=== PATIENT | female | born 1945 | race Caucasian/White ===

== ENCOUNTER 2017-06-08 11:56 | Inpatient (IN) | payer OTHER, MEDICARE ==
[~2017-06-08] VITALS: Ht 160 cm; Wt 77.1 kg
[~2017-06-08 11:56] MED LIST: ALBUTEROL0.09 MG/A1 INH; ALENDRONATE SOD70 M1 PO; ANTIVERT 25MG #1 PAC PO; AUGMENTIN 875875 MG PO; AZITHROMYCIN250 M1 PO; CODEINE SULFATE30 MG PO; COUMADIN 5 MG TA5 MG PO; CUTIVATE 60 ML60 ML TOP; DOCUSATE SODIU100 MG PO; ESCITALOPRAM20 MG PO; FISH OIL CONC1000 MG PO; GALZIN50 MG PO; GARLIC OIL NATUR1 MG PO; HEPARIN 2525000 UNI1 IV; LASIX20 M1 PO; LASIX40 MG PO; LISINOPRIL5 M1 PO; LOPRESSOR 6.26.25 MG PO; LUNESTA2 MG PO; MAG-OX 400400 MG PO; MILK THISTLE1 CAP PO; NYSTATIN100000 U/G TOP; OS-CAL 500 + D1 TAB PO; PRAVASTATIN SOD40 MG PO; PREDNISONE10 M2 PO; PREDNISONE10 MG PO; PROBIOTIC FORMU1 CAP PO; ROBITUSSIN W/CO10 ML PO; ROXICODONE5 MG PO; SENOKOT8.6 MG PO; SINGULAIR10 MG PO; SINGULAIR4 MG; SPIRIVA 18 MCG18 MCG INH; SPRYCEL PO; SYMBICORT 160/41 PUF INH; VALERIAN ROOT100 MG; VITAMIN B COMPL1 CAP PO; VITAMIN C1000 M1 PO; VITAMIN D32000 I1 PO; XANAX 0.5MG TA0.5 MG PO; ZITHROMAX Z-PA250 M1 PO; ZITHROMAX500 MG PO; [UNRECOGNIZED DRUG - OTHER] PO
[2017-06-08 14:26] LABS: ABSOLUTE BASOPHIL COUNT 0.1 /CUMM (0.0-0.2); ABSOLUTE EOSINOPHIL COUNT 0.2 /CUMM (0.0-0.7); ABSOLUTE GRANULOCYTE CT 9.1 /CUMM (1.4-6.5); ABSOLUTE LYMPH COUNT 2.8 /CUMM (1.2-3.4); ABSOLUTE MONOCYTE COUNT 0.9 /CUMM (0.10-0.60); BASOPHIL % 1.1 % (0.0-2.0); EOSINOPHIL % 1.5 % (0-5); HEMATOCRIT 43.9 % (37-47); MEAN CORPUSCULAR HGB 26.6 PG (27.0-31.0); MEAN CORPUSCULAR HGB CONC 34.3 G/DL (33.0-37.0); MEAN CORPUSCULAR VOLUME 77.5 FL (81.0-99.0); MEAN PLATELET VOLUME 7.7 FL (7.4-10.4); RED BLOOD CELL CT 5.66 /CUMM (4.20-5.40); WHITE BLOOD CELL COUNT 13.1 /CUMM (4.8-10.8)
--- NOTE | 2017-06-08 14:34 | ED DYSPNEA/ASTHMA COMPLAINT ---
History of Present Illness General Chief Complaint: Wheezing/Asthma Stated Complaint: ASTHMA Source: patient Exam Limitations: no limitations Vital Signs & Intake/Output Vital Signs & Intake/Output Vital Signs Date Time Temp Pulse Resp B/P B/P Pulse O2 O2 Flow FiO2 Mean Ox Delivery Rate 06/08 1543 97.6 76 22 138/76 95 Room Air 06/08 1211 97.5 70 15 129/85 95 Room Air Room Air Allergies Coded Allergies: adhesive (Severe, RASH 06/08/17) NSAIDS (Non-Steroidal Anti-Inflamma (SOB 06/08/17) aspirin (EXACERBATES ASTHMA 06/08/17) Reconcile Medications Budesonide/Formoterol Fumara (Symbicort 160-4.5 Mcg Inhaler) 160 MCG/4.5 MCG PUF 2 PUF INH BID ASTHMA (Reported) CALCIUM CARBONATE/VITAMIN D3 (Os-Palmer 500+D3 Caplet) 500 MG-200 TABLET 1 TAB PO DAILY SUPPLEMENT (Reported) CHOLECALCIFEROL (VITAMIN D3) (Vitamin D-3) 2,000 IU SGL 1 CAP PO DAILY SUPPLEMENT (Reported) Escitalopram Oxalate 20 MG TABLET 1 TAB PO DAILY DEPRESSION (Reported) Eszopiclone (Lunesta) 2 MG TABLET 1 TAB PO QPM INSOMNIA (Reported) Fish Oil (Fish Oil Concentrate) 1,000 MG SGL 1 TAB PO DAILY SUPPLEMENT ( Reported) Homeopathic Substance (Milk Thistle) 1 CAP CAP 1 CAP PO DAILY Supplement ( Reported) Metoprolol Tartrate (Lopressor) 6.25 MG TAB 6.25 MG PO BID Heart health Hold for SBP<90 or ND <50 Montelukast Sodium (Singulair) 10 MG TAB 1 TAB PO DAILY ASTHMA (Reported) Pravastatin Sodium 40 MG TABLET 1 TAB PO DAILY CHOLESTROL (Reported) Prednisone 10 MG TABLET 1 TAB PO ADD ADMIN CRITERIA ASTHMA TAKE 6 PILLS ON 06/07/2015 TAKE 4 PILLS ON 06/08/2015 TAKE 4 PILLS ON 06/09/2015 TAKE 3 PILLS ON 06/10/2015 TAKE 3 PILLS ON 06/11/2015 TAKE 2 PILLS ON 06/12/2015 TALE 2 PILLS ON 06/13/2015 TALE 1 PILL ON 06/14/2015 TAKE 1 PILL ON 06/15/2015 Triage Note: PT TO ED FOR C/C ASTHMA EXACERBATION. PT RECENTLY SEEN AT WALK IN CLINIC AND STARTED ON PREDNISONE, HAS FINISHED COURSE BUT IS STILL FEELING SOB. O2 SAT 95% AT REST. REPORTS IT'S HARD TO BREATHE, WORSE WHEN WALKING AROUND. Triage Nurses Notes Reviewed? yes Onset: Abrupt Duration: week(s): (2), changing over time, continues in ED, getting worse Timing: recent history Severity: moderate, severe Activities at Onset: activity Prior Episodes/Possible Cause: occasional episodes Modifying Factors: Worsens With: movement. Associated Symptoms: cough, chest pain, wheezing, weakness LMP (ages 10-50): post menopausal : No Patient currently breastfeeds: No HPI: 72-year-old female past medical history of asthma, CLL, breast cancer, pulmonary M wasn't presents for evaluation of shortness of breath. Patient states symptoms started about 2 weeks ago and getting worse. She reports associated dry cough and chest pressure. No fevers. She was seen in urgent care and started on 60 mg of prednisone which ended yesterday. She's also been using her inhalers and nebulizers [id number] without any improvement. She reports shortness of breath worse on exertion. Improved somewhat at rest. She is A nonsmoker. She has a history of PE and is on anticoagulation. No lower extremity edema, hemoptysis, recent surgery recent trauma. (Rehan Colon) Past History Travel History Traveled to [place] past 21 day No Medical History Any Pertinent Medical History? see below for history Neurological: NONE EENT: chronic fungal sinusitis, intermittently steroid-dependent Cardiovascular: PERICARDIAL EFFUSION W/ PERICARDIAL WINDOW (pericardial effusion ) Respiratory: asthma, COPD, PNA Pulmonary embolism in 2012 Gastrointestinal: GERD Hepatic: NONE Renal: NONE Musculoskeletal: osteoporosis Psychiatric: anxiety, depression Endocrine: NONE Blood Disorders: CML, oral chemotherapy Cancer(s): left breast cancer status post mastectomy in 1995 REFRIGERATION INSULATOR/Reproductive: NONE History of MRSA: Yes History of VRE: No History of CDIFF: No Pneumonia Vaccine: 11/14/14 Influenza Vaccine: 11/14/14 Surgical History Surgical History: cholecystectomy, masectomy (left), status post nasal polypectomy and endoscopic sinus surgery Psychosocial History Who do you live with Patient/Self Services at Home None What is your primary language Irish Tobacco Use: Never used ETOH Use: denies use Illicit Drug Use: denies illicit drug use Family History Family History, If Any: MOTHER FH: cancer MOTHER Relation not specified for: FH: hypertension Hx Contributory? No (Rehan Colon) Review of Systems Review of Systems Constitutional: Reports: no symptoms. EENTM: Reports: no symptoms. Respiratory: Reports: see HPI, cough, short of breath, wheezing. Cardiovascular: Reports: no symptoms. GI: Reports: no symptoms. Genitourinary: Reports: no symptoms. Musculoskeletal: Reports: no symptoms. Skin: Reports: no symptoms. Neurological/Psychological: Reports: no symptoms. Hematologic/Endocrine: Reports: no symptoms. Immunologic/Allergic: Reports: no symptoms. All Other Systems: Reviewed and Negative (Rehan Colon) Physical Exam Physical Exam General Appearance: well developed/nourished, no apparent distress, alert, awake Head: atraumatic, normal appearance Eyes: Bilateral: normal appearance, PERRL, EOMI. Ears, Nose, Throat: normal pharynx, normal ENT inspection, hearing grossly normal Neck: normal inspection, supple, full range of motion Respiratory: chest non-tender, no respiratory distress, rhonchi, wheezing ( diffuse) Cardiovascular: regular rate/rhythm, normal peripheral pulses Peripheral Pulses: 2+ radial (R), 2+ radial (L) Gastrointestinal: normal bowel sounds, soft, non-tender, no organomegaly Extremities: normal inspection, normal range of motion, no edema Neurologic/Psych: no motor/sensory deficits, awake, alert, oriented x 3, normal gait Skin: intact, normal color, warm/dry Lymphatic: no anterior cervical heena Core Measures ACS in differential dx? Yes CVA/TIA Diagnosis No Sepsis Present: No Sepsis Focused Exam Completed? No (Rehan Colon) Progress Differential Diagnosis: asthma, AMI, bronchitis, CHF, COPD, pulmonary embolism, pneumonia, pneumothorax, unstable angina Plan of Care: Orders Procedure Date/time Status Heart Healthy Diet 06/09 B Active ED Holding Orders 06/08 1710 Active Admit to inpatient 06/08 1710 Active Vital Signs 06/08 1710 Active Code Status 06/08 1710 Active TROPONIN LEVEL 06/08 1355 Complete MAGNESIUM 06/08 1355 Complete COMPREHENSIVE METABOLIC PANEL 06/08 1355 Complete CBC WITHOUT DIFFERENTIAL 06/08 1355 Complete B-TYPE NATRIURETIC PEP (BNP) 06/08 1355 Complete EKG 06/08 1213 Active Current Medications Sig/Ching Start time Last Medication Dose Stop Time Status Admin Azithromycin 500 MG ONCE ONE 06/08 1645 AC (Zithromax) 06/08 1744 Sodium Chloride 250 ML (Normal Saline 0.9%) Laboratory Tests 06/08/17 1420: Anion Gap 15, Estimated GFR 49 L, BUN/Creatinine Ratio 20.0, Glucose 136 H, Calcium 9.5, Magnesium 2.2, Total Bilirubin 0.4, AST 22, ALT 30, Alkaline Phosphatase 118, Troponin I < 0.01, Gao-K-Qwriftqytlw Pept 135 H, Total Protein 7.3, Albumin 4.2, Globulin 3.1, Albumin/Globulin Ratio 1.4, CBC w Diff NO MAN DIFF REQ, RBC 5.66 H, MCV 77.5 L, MCH 26.6 L, MCHC 34.3, RDW 15.0 H, MPV 7.7 , Gran % 69.0, Lymphocytes % 21.5, Monocytes % 6.9, Eosinophils % 1.5, Basophils % 1.1, Absolute Granulocytes 9.1 H, Absolute Lymphocytes 2.8, Absolute Monocytes 0.9 H, Absolute Eosinophils 0.2, Absolute Basophils 0.1 Patient seen and evaluated. She has diffuse wheezing and rhonchi auscultated bilaterally. She is maintaining oxygen saturation of 95% on room air. Vital signs are otherwise stable. We'll check basic blood work. Patient is at high risk for PE. We'll check a CTA of the chest. EKG normal sinus rhythm without ST or T-wave changes. Blood work shows a white count of 13,000. Troponin is negative. CTA does not show pulmonary embolism but does show some new lung nodules as well as peribronchial thickening. With patient's history of malignancy metastatic disease is on the differential for these nodules. Patient was intubated in the emergency department to the bathroom. She was able to maintain oxygen saturation 95% however becomes visibly dyspneic. She has failed outpatient therapy as she has been on maximum dose prednisone and has been using DuoNeb without any improvement. IV Solu-Medrol DuoNeb and IV Zithromax ordered. Patient will be admitted to the hospital for further evaluation and treatment of an asthma exacerbation. She will require serial labs, pulmonology consult, IV steroids, IV antibiotics, DuoNeb's, monitoring of vital signs. Case discussed with Dr. Patricia he agrees. Diagnostic Imaging: Viewed by Me: CT Scan. Discussed w/RAD: CT Scan. Radiology Impression: PATIENT: NILSA MAHMOOD PRESENT AGE: 72 PATIENT ACCOUNT NO: [id number] : 44 LOCATION: [facility] ORDERING PHYSICIAN: Rehan MONTANO SERVICE DATE: 06/08/17 EXAM TYPE: CAT - CTA CHEST-PULMONARY EMBOLISM EXAMINATION: CT ANGIOGRAM OF THE CHEST WITH CONTRAST ( CT PULMONARY ANGIOGRAM FOR PE) CLINICAL INFORMATION: Chest pain and cough. History of pulmonary embolism. COMPARISON: Chest CT from 06/05/2015. TECHNIQUE: Prior to contrast administration, noncontrast localization images were obtained. Subsequently, multidetector volumetric imaging was performed from the thoracic inlet to below the diaphragms following the administration of 95 mL Optiray 320 intravenous contrast. No contrast reaction reported. Sagittal, coronal, and MIP oblique sagittal reformatted images were obtained on the CT workstation, uploaded to PACS, and reviewed. DLP: Total exam dose-length product 495 mGy-cm FINDINGS: QUALITY OF STUDY/CONTRAST BOLUS: Satisfactory. PULMONARY ARTERIES: No acute findings. No embolic filling defects are identified within the main, lobar or segmental vessels. THORACIC AORTA: Mild atherosclerotic calcification of the thoracic aorta without aneurysm or dissection. LUNGS AND PLEURA: Again noted is chronic bronchial wall thickening in both lungs and some scattered endobronchial secretions. There are multiple small, noncalcified nodules scattered throughout both lungs, similar compared to 06/05/2015. There are some new, small nodules as well, for example 0.3 cm nodules within the right middle lobe (images 238 and 242, series 2). Scattered linear opacities of atelectasis in both lungs. No focal consolidation, edema, pleural effusion or pneumothorax. CARDIOVASCULAR: The heart size is normal. There is are atherosclerotic calcifications of coronary arteries. No inward bowing of the interventricular septum. No pericardial effusion. MEDIASTINUM: The esophagus has normal wall thickness. Again noted is the nodular thyroid gland. A heterogeneous nodule extending from the posterior left thyroid lobe measures approximately 2 x 2.5 cm, unchanged compared to 06/05/2015. LYMPHATICS: No pathologic sized axillary, hilar or mediastinal lymph nodes. UPPER ABDOMEN: Gallbladder is surgically absent. No acute findings. No reflux of contrast into the IVC. OSSEOUS STRUCTURES/CHEST WALL: No acute or suspicious osseous abnormality. Schmorl's node at inferior endplate of the L2 vertebral body. Multilevel discovertebral degenerative change of the thoracic spine. The patient is status post left mastectomy. IMPRESSION: 1. No pulmonary embolism. 2. Chronic bronchial wall thickening in both lungs could reflect presence of chronic bronchitis. Scattered endobronchial secretions , scattered areas of atelectasis, and multiple small noncalcified pulmonary nodules, as noted on prior exams. There are some new, nonspecific nodules as well, including 0.3 cm nodules in the right middle lobe. These are presumably infectious/inflammatory nodules. 3. Stable appearance of the nodular thyroid gland. DICTATED BY: Alexander Brown MD DATE/TIME DICTATED:06/08/171549 DIRECTOR OF MATERNITY SERVICES:POORNIMA DATE/TIME TRANSCRIBED:06/08/171549 Initial ED EKG: normal sinus rhythm, no ST T wave changes (Rehan Colon) Departure Departure Disposition: STILL A PATIENT Condition: Stable Clinical Impression Primary Impression: Asthma exacerbation Qualifiers: Asthma severity: severe Asthma persistence: persistent Qualified Code: J45.51 - Severe persistent asthma with (acute) exacerbation Referrals: Chelo Mancilla (PCP/Family) Departure Forms: Customer Survey General Discharge Information Admission Note Spoke With: Graham MENDIETA,[facility] Documentation of Exam: Documentation of any treatments & extenuating circumstances including Concerns Regarding Discharge (functional status, medication knowledge or non-compliance, living conditions, etc.) that warrant an admission rather than observation: [ Patient is failed outpatient treatment. She becomes visibly dyspneic with exertion. She will require IV steroids, IV antibiotics, DuoNeb's, pulmonology consult, serial labs, monitoring of vital signs.] (Rehan Colon) PA/GRAVEL ROOFER Co-Sign Statement Statement: ED Attending supervision documentation- [X] I saw and evaluated the patient. I have also reviewed all the pertinent lab results and diagnostic results. I agree with the findings and the plan of care as documented in the PA's/GRAVEL ROOFER's documentation. [] I have reviewed the ED Record and agree with the PA's/GRAVEL ROOFER's documentation. [] Additions or exceptions (if any) to the PAs/GRAVEL ROOFER's note and plan are summarized below: [] I've seen and personally examined the patient and I agree with the PAs evaluation. She has bilateral expiratory wheezes. (Conrad Patricia DO) Critical Care Note Critical Care Note Critical Care Time: non-applicable (Rehan Colon)
[2017-06-08 14:45] LABS: PLATELET COUNT 409 /CUMM (130-400)
--- NOTE | 2017-06-08 16:10 | CT SCAN REPORT ---
EXAMINATION: CT ANGIOGRAM OF THE CHEST WITH CONTRAST (CT PULMONARY ANGIOGRAM FOR PE) CLINICAL INFORMATION: Chest pain and cough. History of pulmonary embolism. COMPARISON: Chest CT from 06/05/2015. TECHNIQUE: Prior to contrast administration, noncontrast localization images were obtained. Subsequently, multidetector volumetric imaging was performed from the thoracic inlet to below the diaphragms following the administration of 95 mL Optiray 320 intravenous contrast. No contrast reaction reported. Sagittal, coronal, and MIP oblique sagittal reformatted images were obtained on the CT workstation, uploaded to PACS, and reviewed. DLP: Total exam dose-length product 495 mGy-cm FINDINGS: QUALITY OF STUDY/CONTRAST BOLUS: Satisfactory. PULMONARY ARTERIES: No acute findings. No embolic filling defects are identified within the main, lobar or segmental vessels. THORACIC AORTA: Mild atherosclerotic calcification of the thoracic aorta without aneurysm or dissection. LUNGS AND PLEURA: Again noted is chronic bronchial wall thickening in both lungs and some scattered endobronchial secretions. There are multiple small, noncalcified nodules scattered throughout both lungs, similar compared to 06/05/2015. There are some new, small nodules as well, for example 0.3 cm nodules within the right middle lobe (images 238 and 242, series 2). Scattered linear opacities of atelectasis in both lungs. No focal consolidation, edema, pleural effusion or pneumothorax. CARDIOVASCULAR: The heart size is normal. There is are atherosclerotic calcifications of coronary arteries. No inward bowing of the interventricular septum. No pericardial effusion. MEDIASTINUM: The esophagus has normal wall thickness. Again noted is the nodular thyroid gland. A heterogeneous nodule extending from the posterior left thyroid lobe measures approximately 2 x 2.5 cm, unchanged compared to 06/05/2015. LYMPHATICS: No pathologic sized axillary, hilar or mediastinal lymph nodes. UPPER ABDOMEN: Gallbladder is surgically absent. No acute findings. No reflux of contrast into the IVC. OSSEOUS STRUCTURES/CHEST WALL: No acute or suspicious osseous abnormality. Schmorl's node at inferior endplate of the L2 vertebral body. Multilevel discovertebral degenerative change of the thoracic spine. The patient is status post left mastectomy. IMPRESSION: 1. No pulmonary embolism. 2. Chronic bronchial wall thickening in both lungs could reflect presence of chronic bronchitis. Scattered endobronchial secretions, scattered areas of atelectasis, and multiple small noncalcified pulmonary nodules, as noted on prior exams. There are some new, nonspecific nodules as well, including 0.3 cm nodules in the right middle lobe. These are presumably infectious/inflammatory nodules. 3. Stable appearance of the nodular thyroid gland.
--- NOTE | 2017-06-08 17:08 | History & Physical ---
Anabella Ponce MD,[facility] 06/08/17 0428: General Information and HPI MD Statement: I have seen and personally examined NILSA MAHMOOD and documented this H&P. The patient is a 72 year old F who presented with a patient stated chief complaint of [cough and shortness of breathing]. 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 Patient's daughter was also contacted to complete the history. Patient noted her symptoms started about 2 weeks ago, with worsening of shortness of breathing and cough. She also noted secere exertional shortness of breathing. She tried to make an appointment with Dr. Garsia but the appointment was she was not availabe and deferred to today. She went to her PCP clinic on tuesday and was prescribed 60mg of prednison. The prednisone was finished yesterday but she had no improvement. She went to Dr. Enciso office today and was recommended to come to ED for evaluation and possibly admission. Patient also reported orthopnea, pleuritic chest pain, some chills, but no fever , sick contact, palpitation or sputum. She does not have a mold clamper constantly but follows the nurse practitioner at mold clamper's office at he will, with last echo in October 2016 with an ejection fraction of 66%. She reported remote hisotry of smoking half a pack a day for 20 years but quited 25 years ago. She Occasionally drinks, lives alone and is independent in activities of daily life. Allergies/Medications Allergies: Coded Allergies: adhesive (Severe, RASH 06/08/17) NSAIDS (Non-Steroidal Anti-Inflamma (SOB 06/08/17) aspirin (EXACERBATES ASTHMA 06/08/17) Past History Travel History Traveled to [place] past 21 day No Medical History Neurological: NONE EENT: chronic fungal sinusitis, intermittently steroid-dependent Cardiovascular: PERICARDIAL EFFUSION W/ PERICARDIAL WINDOW (pericardial effusion ) Respiratory: asthma, COPD, PNA Pulmonary embolism in 2013 Gastrointestinal: GERD Hepatic: NONE Renal: NONE Musculoskeletal: osteoporosis Psychiatric: anxiety, depression Endocrine: NONE Blood Disorders: CML, oral chemotherapy Cancer(s): left breast cancer status post mastectomy in 1995 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 self (the patient is ) Services at Home: None Primary Language: Comoran ETOH Use: denies use Illicit Drug Use: denies illicit drug use Functional Ability ADLs Independent: dressing, eating, toileting, bathing. Review of Systems Review of Systems Constitutional: Reports: see HPI. Exam & Diagnostic Data Last 24 Hrs of Vital Signs/I&O Vital Signs Date Time Temp Pulse Resp B/P B/P Pulse O2 O2 Flow FiO2 Mean Ox Delivery Rate 06/08 1915 97.7 95 18 136/75 93 Room Air 06/08 1734 96 06/08 1543 97.6 76 22 138/76 95 Room Air 06/08 1211 97.5 70 15 129/85 95 Room Air Room Air Intake & Output 06/08 1600 06/08 0800 06/08 0000 Intake Total Output Total Balance Patient 173 lb Weight Weight Reported by Patient Measurement Method Physical Exam General Appearance Alert, Oriented X3, Cooperative, No Acute Distress Skin No Significant Lesion Skin Temp/Moisture Exam: Warm/Dry HEENT Atraumatic Cardiovascular Normal S1, Normal S2 Lungs Normal Air Movement, MIld bilateral wheezing Abdomen Soft, No Tenderness Last 24 Hrs of Labs/Kurt: Laboratory Tests 06/08/17 1420: Anion Gap 15, Estimated GFR 49 L, BUN/Creatinine Ratio 20.0, Glucose 136 H, Calcium 9.5, Magnesium 2.2, Total Bilirubin 0.4, AST 22, ALT 30, Alkaline Phosphatase 118, Troponin I < 0.01, [id number] Pept 135 H, Total Protein 7.3, Albumin 4.2, Globulin 3.1, Albumin/Globulin Ratio 1.4, CBC w Diff NO MAN DIFF REQ, RBC 5.66 H, MCV 77.5 L, MCH 26.6 L, MCHC 34.3, RDW 15.0 H, MPV 7.7 , Gran % 69.0, Lymphocytes % 21.5, Monocytes % 6.9, Eosinophils % 1.5, Basophils % 1.1, Absolute Granulocytes 9.1 H, Absolute Lymphocytes 2.8, Absolute Monocytes 0.9 H, Absolute Eosinophils 0.2, Absolute Basophils 0.1 Assessment/Plan Assessment: Patient is 70-year-old woman referred with cough, SOB recieved recent PO pred PMH: HTN, asthma, COPD (not on home O2 or chronic steroids), history of PE (on xeralto), breast cancer (status post mastectomy, no radiotherapy or chemotherapy ), 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 No pulmonary embolism. 2. Chronic bronchial wall thickening in both lungs could reflect presence of chronic bronchitis. Scattered endobronchial secretions, scattered areas of atelectasis, and multiple small noncalcified pulmonary nodules, as noted on prior exams. There are some new, nonspecific nodules as well, including 0.3 cm nodules in the right middle lobe. These are presumably infectious/inflammatory nodules. 3. Stable appearance of the nodular thyroid gland. Patient was admitted to floor for management of following conditions: COPD exacerbation/Asthma Patient already improved in the ED - admit to GM - Solumedrol - ceftriaxone and azitromycin IV - Continue nebs Increased Cr: - IV fluids 1Lit Chronic medical conditions We will continue home medication Regular diet FC on xeralto As Ranked By This Provider Problem List: 1. COPD (chronic obstructive pulmonary disease) 2. Asthma exacerbation Qualifiers Asthma severity: severe Asthma persistence: persistent Qualified Code: J45.51 - Severe persistent asthma with (acute) exacerbation Core Measures/Misc (10/31) Acute Coronary Syndrome ACS Diagnosis: No Congestive Heart Failure Congestive Heart Failure Diagnosis No Cerebrovascular Accident CVA/TIA Diagnosis: No VTE (View Protocol) VTE Risk Factors Age>40 No Mechanical VTE Prophylaxis d/t N/A MechProphylax Ordered No VTE Pharm Prophylaxis d/t NA PharmProphylax ordered Sepsis (View protocol) Sepsis Present: No Graham MENDIETA,Liz 06/08/17 1821: Attending MD Review Statement Attending Statement Attending MD Statement: examined this patient, discuss w/resident/PA/ENGAGEMENT ENGINEER, agreed w/resident/PA/ENGAGEMENT ENGINEER, discussed with family, reviewed EMR data (avail) Attending Assessment/Plan: Patient seen and examined. Plan of care discussed with the medical team and the patient. Available lab work and radiology test reports were reviewed. 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 Patient has recently been treated with oral prednisone but has not taken any antibiotics. She has not still felt better despite treatment with prednisone. In the ED she was afebrile with stable vital signs with 96% saturation on room air. She appeared comfortable and did not show any tachypnea or distress. Chest examination shows a slightly reduced air entry at the bases with the mild expiratory wheezing. Otherwise exam is unremarkable. Left show WBC count of 13.1 and increasing creatinine to 1.1 with baseline of 0.7. CTA chest showed the bronchial wall thickening with atelectasis and multiple pulmonary nodules which is similar to prior examinations. No pulmonary embolism was noted. Assessment plan * Acute and chronic bronchitis with the history of COPD in the past * History of PE currently [employer] related * Acute renal failure and dehydration * History of breast cancer * History of exudative pleural effusion Plan * We'll admit to general medical floor * Start IV Solu Medrol 40 every 6 * IV azithromycin * TRC nebs as needed and oxygen if needed * Continue home medications except prednisone * 1 L of IV fluids slowly overnight * Recheck BP tomorrow Tasneem MENDIETA,Dwaine 06/08/172009: General Information and HPI Allergies/Medications Home Med list Budesonide/Formoterol Fumara (Symbicort 160-4.5 Mcg Inhaler) 160 MCG/4.5 MCG PUF 2 PUF INH BID ASTHMA (Reported) CALCIUM CARBONATE/VITAMIN D3 (Os-Palmer 500+D3 Caplet) 500 MG-200 TABLET 1 TAB PO DAILY SUPPLEMENT (Reported) CHOLECALCIFEROL (VITAMIN D3) (Vitamin D-3) 2,000 IU SGL 1 CAP PO DAILY SUPPLEMENT (Reported) Escitalopram Oxalate 20 MG TABLET 1 TAB PO DAILY DEPRESSION (Reported) Eszopiclone (Lunesta) 2 MG TABLET 1 TAB PO QPM INSOMNIA (Reported) Lisinopril 20 MG TABLET 1 TAB PO DAILY HTN (Reported) Mirtazapine 15 MG TABLET 1 TAB PO QPM SLEEP HEALTH (Reported) Montelukast Sodium (Singulair) 10 MG TAB 1 TAB PO DAILY ASTHMA (Reported) Pravastatin Sodium 40 MG TABLET 1 TAB PO DAILY CHOLESTROL (Reported) Prednisone 10 MG TABLET 1 TAB PO ADD ADMIN CRITERIA ASTHMA TAKE 6 PILLS ON 06/07/2015 TAKE 4 PILLS ON 06/08/2015 TAKE 4 PILLS ON 06/09/2015 TAKE 3 PILLS ON 06/10/2015 TAKE 3 PILLS ON 06/11/2015 TAKE 2 PILLS ON 06/12/2015 TALE 2 PILLS ON 06/13/2015 TALE 1 PILL ON 06/14/2015 TAKE 1 PILL ON 06/15/2015 Rivaroxaban (Xarelto) 20 MG TABLET 1 TAB PO QPM PE (Reported) with food Resident Review Statement Resident Statement: examined this patient, discussed with project intern, agreed with project intern, discussed with family, reviewed images Other Findings: Patient is 72 year old female with past medical history significant for COPD not on home oxygen or chronic steroid, PE 3 on anticoagulation Xarelto last 02/2015, breast cancer and CML status post chemotherapy, anxiety, hyperlipidemia, pericardial effusion status post window, history of left sided malignant pleural effusion, patient presented to ED with chief complaint of persisting cough, shortness of breath for 2 weeks. Patient reported having symptoms for 2 weeks that is getting worse, saw her PCP who prescribed her prednisone 605 days, last dose was yesterday with minimal improvement, saw Dr. Alexander today covering for Robert Ewing MD and he asked her to come to ED for evaluation. Patient reported orthopnea chronic, paroxysmal nocturnal dyspnea, chills, nasal congestion. Patient is an ex-smoker, quit 25 years ago and smoked for 20 years. Problem list COPD exacerbation Hypertension PE on anticoagulation RUBY Plan Admit to general medical floor Vitals every shift TRC Continue home inhalers Symbicort Solu-Medrol 40 every 6 IV azithromycin Consider obtaining pulmonary consultation in a.m. 1 bag of fluid 75 cc/hr Continue rest of home medication Continue Xarelto for anticoagulation Diet heart healthy Code full
--- NOTE | 2017-06-08 18:21 | Admission Certification ---
Admission Certification Certification Statement - As attending physician, I certify that at the time of - admission, based on clinical presentation, severity of - symptoms, need for further diagnostic testing and - therapeutic interventions, and risk of adverse outcomes - without in-hospital treatment, in my clinical assessment, - this patient requires an acute hospital stay for a minimum - of two nights or longer. I have also considered psychsocial - factors such as support system, advanced age, financial - issues, cognitive issues, and failed out-patient treatments, - past re-admission history, safety of patient, and lack of - compliance as applicable. Specific rationale supporting this admission is: Acute bronchitis. Outpatient treatment failure
[2017-06-08] MEDS ORDERED: XARELTO20 M2 PO (19:26)
[2017-06-08] MEDS ORDERED: MIRTAZAPINE15 M2 PO (19:27)
[2017-06-08] MEDS ORDERED: LISINOPRIL20 M1 PO (19:27)
[2017-06-08 20:03] VITALS: BP 118/80
[2017-06-09 06:50] VITALS: BP 123/50
--- NOTE | 2017-06-09 07:12 | PN- Housestaff ---
Anabella Ponce MD,[facility] 06/09/17 0712: Subjective Follow-up For: Asthma/COPD exacerbation Subjective: Patient visited today, was lying in bed comfortably in no acute distress, was alert and oriented. No fever or chills,no chest pain, no other events. Miraculously improved. We will plan to discharge tomorrow Review of Systems Constitutional: Reports: see HPI. Objective Last 24 Hrs of Vital Signs/I&O Vital Signs Date Time Temp Pulse Resp B/P B/P Pulse O2 O2 Flow FiO2 Mean Ox Delivery Rate 06/09 1600 95 Room Air 06/09 1409 97.8 90 18 120/70 95 Room Air 06/09 0910 93 Room Air Room Air 06/09 0802 60 123/50 06/09 0800 95 Room Air 06/09 0650 97.8 60 20 123/50 95 Room Air 06/09 0000 Room Air 06/08 2203 Room Air Room Air 06/08 2002 97.8 88 20 118/80 94 06/08 1915 97.7 95 18 136/75 93 Room Air 06/08 1734 96 Intake & Output 06/09 1600 06/09 0800 06/09 0000 Intake Total 1350 440 220 Output Total Balance 1350 440 220 Intake, IV 750 200 100 Intake, Oral 600 240 120 Patient 170 lb Weight Weight Reported by Patient Measurement Method Physical Exam General Appearance: Alert, Oriented X3, Cooperative Skin Temp/Moisture Exam: Warm/Dry Sepsis Skin Exam (color): Normal for Ethnicity HEENT: Atraumatic Cardiovascular: Normal S1, Normal S2 Lungs: Clear to Auscultation, Normal Air Movement, improved wheezing Abdomen: Soft, No Tenderness Neurological: Normal Speech Current Medications: Current Medications Sig/Ching Start time Last Medication Dose Route Stop Time Status Admin Acetaminophen 650 MG Q6P PRN 06/08 1930 AC PO Albuterol Sulfate 3 ML BID 06/09 09 AC 06/09 INH 0907 Azithromycin 500 MG DAILY 06/09 09 AC 06/09 Sodium Chloride 250 ML IV 08 Azithromycin 500 MG ONCE ONE 06/08 1645 DC 06/08 Sodium Chloride 250 ML IV 06/08 1744 1737 Budesonide/ 2 PUF BID 06/08 2215 AC Formoterol Fumarate INH Budesonide/ 2 PUF BID 06/08 2100 AC 06/09 Formoterol Fumarate INH 0802 Cholecalciferol 2,000 IU DAILY 06/09 09 AC 06/09 PO 0802 Escitalopram Oxalate 20 MG DAILY 06/09 09 AC 06/09 PO 08 Lisinopril 20 MG DAILY 06/09 09 AC 06/09 PO 0802 Melatonin 5 MG AT BEDTIME 06/09 2100 CAN PO Melatonin 5 MG ONCE ONE 06/08 2300 DC 06/08 PO 06/08 2301 2303 Methylprednisolone 40 MG Q6 06/08 2359 AC 06/09 IV 1707 Methylprednisolone 0 .STK-MED ONE 06/08 1736 DC .ROUTE Mirtazapine 15 MG QPM 06/08 2100 AC 06/08 PO 230 Montelukast Sodium 10 MG DAILY 06/09 09 AC 06/09 PO 0802 Pravastatin Sodium 40 MG 1700 06/09 1700 AC 06/09 PO 170 Rivaroxaban 20 MG 06/08 AC PO Sodium Chloride 1,000 ML .Q20H 06/08 1930 DC 06/08 IV 06/09 1529 2157 Zolpidem Tartrate 5 MG AT BEDTIME 06/09 2100 AC PO Last 24 Hrs of Lab/Kurt Results Last 24 Hrs of Labs/Mics: Laboratory Tests 06/09/17 0627: Anion Gap 14, Estimated GFR > 60, BUN/Creatinine Ratio 41.7 H, CBC w Diff NO MAN DIFF REQ, RBC 5.41 H, MCV 78.9 L, MCH 26.6 L, MCHC 33.7, RDW 15.2 H, MPV 8.1, Gran % 86.5 H, Lymphocytes % 12.5 L, Monocytes % 0.6 L, Eosinophils % 0, Basophils % 0.4, Absolute Granulocytes 8.9 H, Absolute Lymphocytes 1.3, Absolute Monocytes 0.1, Absolute Eosinophils 0, Absolute Basophils 0 Assessment/Plan Assessment: Patient is 70-year-old woman referred with cough, SOB recieved recent PO pred PMH: HTN, asthma, COPD (not on home O2 or chronic steroids), history of PE (on xeralto), breast cancer (status post mastectomy, no radiotherapy or chemotherapy ), 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 No pulmonary embolism. 2. Chronic bronchial wall thickening in both lungs could reflect presence of chronic bronchitis. Scattered endobronchial secretions, scattered areas of atelectasis, and multiple small noncalcified pulmonary nodules, as noted on prior exams. There are some new, nonspecific nodules as well, including 0.3 cm nodules in the right middle lobe. These are presumably infectious/inflammatory nodules. 3. Stable appearance of the nodular thyroid gland. Patient was admitted to GM floor for management of following conditions: COPD exacerbation/Asthma Patient already improved in the ED - admit to GM - Solumedrol, change to PO - ceftriaxone and azitromycin IV - Continue nebs Increased Cr: - IV fluids 1Lit given DC Chronic medical conditions We will continue home medication Regular diet FC on xeralto Problem List: 1. Asthma 2. Asthma exacerbation 3. Bronchitis 4. COPD (chronic obstructive pulmonary disease) 5. Anxiety Pain Ratin Pain Location: None Pain Goal: Pain 4 or less Pain Plan: none Tomorrow's Labs & Rationales: None Tessie MENDIETA,Olivia 06/09/17 1428: Attending MD Review Statement Attending Statement Attending MD Statement: examined this patient, discuss w/resident/PA/DIRECTOR OF GRADUATE MEDICAL EDUCATION, agreed w/resident/PA/DIRECTOR OF GRADUATE MEDICAL EDUCATION, reviewed EMR data (avail), discussed with nursing, discussed with case mgmt, amended to note Attending Assessment/Plan: Patient seen and examined. Extremely pleasant lady admitted with COPD exacerbation. I did have a conversation with her disabilities services officer. She has failed outpatient steroid therapy. She is currently resting comfortably and not in acute distress. She reports feeling better compared to presentation. On examination she has adequate entry bilaterally with very mild expiratory wheezing. We will continue systemic steroid therapy intravenously today. Azithromycin may be transitioned to the oral route. If patient continues to improve clinically may consider discharge in the next 24-48 hours. This plan of care was discussed with the patient and she verbalized understanding.
[2017-06-09 08:16] LABS: ABSOLUTE BASOPHIL COUNT 0 /CUMM (0.0-0.2); ABSOLUTE EOSINOPHIL COUNT 0 /CUMM (0.0-0.7); ABSOLUTE GRANULOCYTE CT 8.9 /CUMM (1.4-6.5); ABSOLUTE LYMPH COUNT 1.3 /CUMM (1.2-3.4); ABSOLUTE MONOCYTE COUNT 0.1 /CUMM (0.10-0.60); BASOPHIL % 0.4 % (0.0-2.0); EOSINOPHIL % 0 % (0-5); HEMATOCRIT 42.7 % (37-47); MEAN CORPUSCULAR HGB 26.6 PG (27.0-31.0); MEAN CORPUSCULAR HGB CONC 33.7 G/DL (33.0-37.0); MEAN CORPUSCULAR VOLUME 78.9 FL (81.0-99.0); MEAN PLATELET VOLUME 8.1 FL (7.4-10.4); PLATELET COUNT 390 /CUMM (130-400); RBC DISTRIBUTION WIDTH 15.2 % (11.5-14.5); RED BLOOD CELL CT 5.41 /CUMM (4.20-5.40); WHITE BLOOD CELL COUNT 10.3 /CUMM (4.8-10.8)
[2017-06-09] MEDS ORDERED: AZITHROMYCIN250 M1 PO ×2 (09:06→09:15)
[2017-06-09 09:11] LABS: GRANULOCYTE % 86.5 % (42.2-75.2)
--- NOTE | 2017-06-09 09:13 | Patient Discharge Instructions ---
Discharge Instructions General Discharge Information You were seen/treated for: asthma/copd exacerbation You had these procedures: None Watch for these problems: Severe shortness of breathing, cough, sputum, fever, chills or worsening of any other symptoms Special Instructions: Please follow with your brass bobbin winder within one week of discharge. Please inform your PCP regarding your admission, please take your medications as ordered, come back to hospital if symptoms worsened. Diet Continue normal diet: No Recommended Diet: Heart Healthy Activity Full Activity/No Limits: No Activity Self Limited: Yes Acute Coronary Syndrome Inclusion Criteria At DC or during hospital stay patient has or had the following: ACS DIAGNOSIS No Discharge Core Measures Meds if any: Prescribed or Continued at Discharge Meds if any: NOT Prescribed or Continued at Discharge Congestive Heart Failure Inclusion Criteria At DC or during hospital stay patient has or had the following: CHF DIAGNOSIS No Discharge Core Measures Meds if any: Prescribed or Continued at Discharge Meds if any: NOT Prescribed or Continued at Discharge Cerebrovascular accident Inclusion Criteria At DC or during hospital stay patient has or had the following: CVA/TIA Diagnosis No Discharge Core Measures Meds if any: Prescribed or Continued at Discharge Meds if any: NOT Prescribed or Continued at Discharge Venous thromboembolism Inclusion Criteria VTE Diagnosis No VTE Type NONE VTE Confirmed by (Test) NONE Discharge Core Measures - Per Current guidelines, there needs to be overlap - treatment for the first 5 days of Warfarin therapy. - If discharged on Warfarin prior to 5 days of - overlap therapy, the patient will need to be - assessed for post discharge needs including - *Post discharge parental anticoagulation - *Warfarin and/or parental anticoagulation education - *Follow up date to check INR post discharge At least 5 days overlap therapy as Inpatient No Meds if any: Prescribed or Continued at Discharge Note: Overlap Therapy is Warfarin and Anticoagulant Meds if any: NOT Prescribed or Continued at Discharge
[2017-06-09 14:09] VITALS: BP 120/70
[2017-06-09 21:24] VITALS: BP 140/70
[2017-06-10 05:57] VITALS: BP 128/64
[2017-06-10] MEDS ORDERED: PREDNISONE10 M2 PO ×2 (07:46→09:32)
[2017-06-10 08:03] VITALS: BP 128/64
--- NOTE | 2017-06-10 08:34 | PN- Housestaff ---
Anabella Ponce MD,[facility] 06/10/17 0833: Subjective Follow-up For: Asthma/COPD exacerbation Subjective: Patient visited today, was lying in bed comfortably in no acute distress, was alert and oriented. No fever or chills,no chest pain, no other events. Patient planned to be discharged today. Review of Systems Constitutional: Reports: see HPI. Objective Last 24 Hrs of Vital Signs/I&O Vital Signs Date Time Temp Pulse Resp B/P B/P Pulse O2 O2 Flow FiO2 Mean Ox Delivery Rate 06/10 1006 96 Room Air 06/10 0803 98 128/64 06/10 0557 98.0 67 20 128/64 96 Room Air 06/10 0000 Room Air 06/09 2124 97.9 80 22 140/70 95 Room Air 06/09 1835 96 Room Air 06/09 1600 95 Room Air 06/09 1409 97.8 90 18 120/70 95 Room Air Physical Exam General Appearance: Alert, Oriented X3, Cooperative Skin: No Significant Lesion Skin Temp/Moisture Exam: Warm/Dry Sepsis Skin Exam (color): Normal for Ethnicity HEENT: Atraumatic Cardiovascular: Normal S1, Normal S2 Lungs: Clear to Auscultation, Normal Air Movement Abdomen: Soft, No Tenderness Neurological: Normal Speech Current Medications: Current Medications Sig/Ching Start time Last Medication Dose Route Stop Time Status Admin Acetaminophen 650 MG Q6P PRN 06/08 1930 AC PO Albuterol Sulfate 3 ML BID 06/09 09 AC 06/10 INH 1006 Azithromycin 250 MG DAILY 06/10 09 AC 06/10 PO 0947 Azithromycin 500 MG DAILY 06/09 09 DC 06/09 Sodium Chloride 250 ML IV 0802 Budesonide/ 2 PUF BID 06/08 2215 AC Formoterol Fumarate INH Budesonide/ 2 PUF BID 06/08 2099 AC 06/10 Formoterol Fumarate INH 0805 Cholecalciferol 2,000 IU DAILY 06/09 09 AC 06/10 PO 0806 Escitalopram Oxalate 20 MG DAILY 06/09 09 AC 06/10 PO 0802 Lisinopril 20 MG DAILY 06/09 09 AC 06/10 PO 0803 Melatonin 5 MG AT BEDTIME 06/09 2100 CAN PO Methylprednisolone 40 MG Q6 06/08 2359 DC 06/10 IV 0551 Mirtazapine 15 MG QPM 06/08 2100 AC 06/09 PO 2156 Montelukast Sodium 10 MG DAILY 06/09 0900 AC 06/10 PO 0804 Patient Medication 1 ED ONE ONE 06/10 0915 PA Teaching ED 06/10 0916 Pravastatin Sodium 40 MG 1700 06/09 1700 AC 06/09 PO 1707 Prednisone 40 MG DAILY 06/10 0900 AC 06/10 PO 06/11 0901 0947 Rivaroxaban 20 MG 2000 06/09 1999 AC 06/09 PO 2038 Sodium Chloride 1,000 ML .Q20H 06/08 1930 DC 06/08 IV 06/09 1529 2157 Zolpidem Tartrate 5 MG AT BEDTIME 06/09 2099 AC 06/09 PO 2156 Assessment/Plan Assessment: Patient is 70-year-old woman referred with cough, SOB recieved recent PO pred PMH: HTN, asthma, COPD (not on home O2 or chronic steroids), history of PE (on xeralto), breast cancer (status post mastectomy, no radiotherapy or chemotherapy ), 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 No pulmonary embolism. 2. Chronic bronchial wall thickening in both lungs could reflect presence of chronic bronchitis. Scattered endobronchial secretions, scattered areas of atelectasis, and multiple small noncalcified pulmonary nodules, as noted on prior exams. There are some new, nonspecific nodules as well, including 0.3 cm nodules in the right middle lobe. These are presumably infectious/inflammatory nodules. 3. Stable appearance of the nodular thyroid gland. Patient was admitted to [facility] floor for management of following conditions: COPD exacerbation/Asthma Patient was admitted to general medicine floor, IV Solu-Medrol as well as IV azithromycin were administered. With improvement of the condition medications were changed to by mouth azithromycin and by mouth prednisone. Patient was miraculously improved. Patient was stable to be discharged with recommendations to follow with PCP and Dr. Short. Increased Cr: IV fluids 1Lit given which resulted in improvement. Chronic medical conditions We will continue home medication Regular diet FC on xeralto Patient was stable to be discharged. Problem List: 1. Asthma exacerbation 2. COPD (chronic obstructive pulmonary disease) Pain Ratin Pain Location: None Pain Goal: Pain 4 or less Pain Plan: None Tomorrow's Labs & Rationales: CANDIDA Kurtz MD,[facility] 06/10/17 1107: Attending MD Review Statement Attending Statement Attending MD Statement: examined this patient, discuss w/resident/PA/TRIM SAWYER, agreed w/resident/PA/TRIM SAWYER, reviewed EMR data (avail), discussed with nursing, discussed with case mgmt, amended to note Attending Assessment/Plan: Patient seen and examined. No issues overnight reported by nursing staff. Remains afebrile and hemodynamically stable. Resting comfortably and not in any acute distress. Patient feels well today and is excited to go home. Denies any shortness of breath or palpitations. She is not requiring oxygen supplementation. On examination she has adequate entry bilaterally with no added sounds. She is medically stable to be discharged home today. She will be discharged on a prednisone taper. 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
[2017-06-10] MEDS ORDERED: AZITHROMYCIN250 M1 PO ×2 (09:06→09:32)
--- NOTE | 2017-06-10 14:22 | Discharge Summary ---
Hospital Course Allergies: Coded Allergies: adhesive (Severe, RASH 06/08/17) NSAIDS (Non-Steroidal Anti-Inflamma (SOB 06/08/17) aspirin (EXACERBATES ASTHMA 06/08/17) Discharge Instructions Medications at Discharge Discharge Medications: Stop taking the following medications: Prednisone (Prednisone) 10 MG TABLET ORAL AAC Qty = 20 Continue taking these medications: Eszopiclone (Lunesta) 2 MG TABLET 1 Tablet ORAL Every night Qty = 30 Comments: Last Taken: 06/07/15 Time: 10:30 A.M. Escitalopram Oxalate (Escitalopram Oxalate) 20 MG TABLET 1 Tablet ORAL DAILY Qty = 30 Comments: Last Taken:06/07/15 Time:1030 A.M. Pravastatin Sodium (Pravastatin Sodium) 40 MG TABLET 1 Tablet ORAL DAILY Qty = 90 Comments: Last Taken: 06/06/15 Time: 5:30 PM Budesonide/Formoterol Fumara (Symbicort 160-4.5 Mcg Inhaler) 160 MCG/4.5 MCG PUF 2 Puff Inhale through mouth TWICE DAILY Qty = 10 Comments: Last Taken: 06/07/15 Time: 10:40 A.M. CALCIUM CARBONATE/VITAMIN D3 (Os-Palmer 500+D3 Caplet) 500 MG-200 TABLET 1 Tablet ORAL DAILY Comments: NOT TAKEN IN HOSPITAL CHOLECALCIFEROL (VITAMIN D3) (Vitamin D-3) 2,000 IU SGL 1 Capsule ORAL DAILY Comments: Last Taken: 06/07/15 Time: 10:30 A.M. Montelukast Sodium (Singulair) 10 MG TAB 1 Tablet ORAL DAILY Qty = 30 Comments: Last Taken: 06/07/15 Time:1030 A.M. Rivaroxaban (Xarelto) 20 MG TABLET 1 Tablet ORAL Every night Instructions: with food Comments: Last Taken:06/09/17 Time:08:30 PM Mirtazapine (Mirtazapine) 15 MG TABLET 1 Tablet ORAL Every night Comments: Last Taken:06/09/17 Time:10:00 PM Lisinopril (Lisinopril) 20 MG TABLET 1 Tablet ORAL DAILY Comments: Last Taken:06/10/17 Time:0800 Start taking the following new medications: Azithromycin (Azithromycin) 250 MG TABLET 1 Tablet ORAL DAILY Qty = 3 No Refills Instructions: . Comments: Last Taken:06/10/17 Time:0945 AM Prednisone (Prednisone) 10 MG TABLET 1 Tablet ORAL TWICE DAILY Qty = 19 No Refills Instructions: take: 4 pills for 2 days 3 pills for 2 days 2 pills for 2 days 1 pill for 2 days and then stop. Comments: Last Taken:06/10/17 Time: 0945 AM 40MG GIVEN take: 4 pills for 2 days 3 pills for 2 days 2 pills for 2 days 1 pill for 2 days and then stop
== END 2017-06-10 11:36 | DRG 202 ==
LOC: ERH 11:56 → ERHI 17:10 → 2NB 17:10 → ENRESERV 18:05 → ENTRNSPT 19:12 → EDTRNSPT 19:44 → EDTRNSPTSTS 19:44 → CMPTRNSPT 19:59 → 2NB 20:01 → ENPENDDIS 06-10 09:22 → 2NB 06-10 11:36
PROVIDERS: Physician Assistant Medical; Student in an Organized Health Care Education/Training Program
DX: J20.9 Acute bronchitis, unspecified (principal); J44.0 Chronic obstructive pulmonary disease with (acute) lower respiratory infection; N17.9 Acute kidney failure, unspecified; E86.0 Dehydration; C92.10 Chronic myeloid leukemia, BCR/ABL-positive, not having achieved remission; J32.8 Other chronic sinusitis; Z86.711 Personal history of pulmonary embolism; Z79.01 Long term (current) use of anticoagulants; Z85.3 Personal history of malignant neoplasm of breast; Z90.12 Acquired absence of left breast and nipple; M81.0 Age-related osteoporosis without current pathological fracture; K21.9 Gastro-esophageal reflux disease without esophagitis; F41.9 Anxiety disorder, unspecified; F32.9 Major depressive disorder, single episode, unspecified
CPT/HCPCS: 2NBP; 36592; 82436; 93005; 93010; J0456; J2920; J2930; J3490; J7040